=== PATIENT | female | born 1975 | race Caucasian/White ===

== ENCOUNTER → 2017-05-15 | Outpatient (CLI) | payer OTHER ==
[~2017-05-15] MED LIST: ADAL40PEN; ALBU90OI61; ALLO100 PO; AMIT10 PO; AMIT25 PO; AMIT50 PO; ATEN50; Aspir 8181 MG PO; BENZ100A PO; BUSP10 PO; Bactrim Ds Tab1 EACH PO; Budeprion Xl300 MG; CEPH500 PO; CHLO100 PO; CHOL10002 PO; CHOLESTEROL MED; CIMZIA400 MG/2 M SQ; CIPR250 PO; CIPR500 PO; CLIN300 PO; CLON1; CLON1 PO; CLOP75 PO; CYCL10 PO; Cleocin HCl150 MG PO; Cleocin HCl300 MG PO; DIAZ10 PO; DIAZ5 PO; DIAZ5I PO; DICL75ER PO; DIPATR PO; DIPH50 PO; DOCU100 PO; DULO60 PO; ERYT333ERA PO; ESOM20 PO; FAMO20 PO; FENO145 PO; FISH1000 PO; FOLI1 PO; GABA100 PO; GABA300T24 PO; GEMF600 PO; HYDACE10B PO; HYDACE5 PO; HYDACE5325 PO; HYDCHL25; HYDCHL25 PO; HYDMOR4 PO; HYDPAM25 PO; HYDPAM50 PO; HYDR1TAB94 PO; HYDR25SUP PR; HYDROCHLOROTHIAZIDE; HYOS.125 SL; Hydrocodone-Ap1 EA23; Hydrocodone-Ap1 EA23 PO; IBUP400 PO; IBUP600 PO; K-Tab10 MEQ PO; KETO10 PO; LEVFLO500 PO; LIDO2L MM; LISHYD1012 PO; LISHYD2012 PO; LORA1 PO; LORA10ER PO; MECL25 PO; MELA3 PO; MELO7.5 PO; METF500; METF500 PO; METH5; METO100ER PO; METO25 PO; METO50 PO; METO50ER PO; METR500 PO; METTREX2.5; METTREX2.5 PO; MUPI1NAS; Methotrexate2.5 MG PO; NAPR500 PO; NAPR500EC PO; NYST237S MT; Naprosyn500 MG PO; Nitrostat0.4 MG SL; Norco 5-325 Ta1 EACH PO; OMEGA 3 PO; OMEP20ER PO; OMEP40CA12 PO; ONDA4; ONDA4 PO; ONDA4ODT; ONDA4ODT MM; ONDA8; ONDA8 PO; ONDA8ODT MM; OXYACE10; OXYACE5T PO; OXYACE7.5T PO; OXYCODONE/APAP PO; PANT20 PO; PANT40 PO; PARO20 PO; PERCOCET 10/325 PO; POTCHL20ER PO; PRAZ1 PO; PRED10 PO; PRED20 PO; PROC10 PO; PROM25; PROM25 PO; PROM25S PR; PROP10 PO; Percocet; Percocet 5-3251 EACH PO; Percocet PO; Prednisone10 MG PO; Prednisone20 MG PO; Prednisone50 MG PO; Protonix40 MG; Protonix40 MG PO; QUET100 PO; QUET200 PO; RANI150 PO; RIFA300 PO; RXHYDACE PO; RXONDA4ODT MM; RXOXYACE PO; RXPHEN200 PO; RXSULTRIDS PO; RXTRAM50 PO; Robaxin500 MG PO; SERT100; SERT100 PO; SERT50 PO; SIMV40 PO; SUCR1 PO; SULF500 PO; SULTRIDS PO; SULTRISS PO; Seroquel Xr150 MG PO; TAMS.4ER PO; TOPI50; TRAM50; TRAM50 PO; TRAZ100; TRAZ100 PO; TRAZ50; Ultram50 MG PO; VENL37.5; VENLAFAXINE H37.5 MG PO; Voltaren100 GM; XELJANZ XR11 MG PO; XELJANZ5 MG PO; ZESTORETIC 20-251 EA PO; ZOLP10; Zithromax250 MG PO; Zofran Odt4 MG PO; Zofran Odt4 MG SL; Zofran Odt8 MG SL; Zoloft50 MG PO; Zovirax800 MG PO; [UNRECOGNIZED DRUG - OTHER] IM
[2017-05-15 15:24] LABS: BASOPHILS ABSOLUTE AUTO 0.04 K/mm3 (0.00-0.23); BASOPHILS PERCENT AUTO 1 % (0-2); EOSINOPHILS ABSOLUTE AUTO 0.11 K/mm3 (0.00-0.68); EOSINOPHILS PERCENT AUTO 1 % (0-6); Hematocrit 35.3 % (33.0-51.0); IMMATURE GRAN ABSOLUTE AUTO 0.04 K/mm3 (0.00-0.10); IMMATURE GRAN PERCENT AUTO 1 % (0-1); LYMPHOCYTES PERCENT AUTO 34 % (21-46); MONOCYTES ABSOLUTE AUTO 0.46 K/mm3 (0.16-1.47); MONOCYTES PERCENT AUTO 5 % (4-13); Mean Corpuscular HGB 28.2 pg (26.0-34.0); Mean Corpuscular Volume 83 fL (80-100); Mean Platelet Volume 9.4 fL (9.1-12.4); NEUTROPHILS PERCENT AUTO 59 % (41-73); Platelet Count 265 K/mm3 (150-400); RDW Coefficient Variation 14.6 % (11.7-14.2); RDW Standard Deviation 43.1 fL (35.1-46.3); Red Blood Cell Count 4.26 M/mm3 (3.80-5.20); White Blood Cell Count 8.85 K/mm3 (4.00-11.30)
[2017-05-15 15:38] LABS: Anion Gap 12 mmol/L (6-16); Blood Urea Nitrogen 10 mg/dL (8-24); Bun/Creatinine Ratio 12.7 (12.0-20.0); CO2, Blood 21 mmol/L (21-32); Chloride, Blood 105 mmol/L (98-108); Creatinine, Blood 0.79 mg/dL (0.40-1.00); Glomerular Filtration Rate >60 (60-); Glucose, Blood 104 mg/dL (70-99); Sodium, Blood 138 mmol/L (136-145)
== END ==
LOC: LAB EV 15:19 → LAB SHORT 15:19
PROVIDERS: Physician Assistant Surgical
DX: R10.32 Left lower quadrant pain (principal)
CPT/HCPCS: 80048; 85025

== ENCOUNTER 2017-08-04 12:07 | Emergency (ER) | payer OTHER ==
[~2017-08-04] VITALS: Ht 160 cm; Wt 131.1 kg
[~2017-08-04 12:07] MED LIST changes: -ALBU90OI61; -ATEN50; -BENZ100A PO; -Budeprion Xl300 MG; -ONDA8; -Prednisone20 MG PO; -Prednisone50 MG PO; -Voltaren100 GM; -ZOLP10; -Zithromax250 MG PO
== END 2017-08-04 13:15 | disposition home or self-care (01) ==
LOC: ER 12:07
DX: M25.521 Pain in right elbow (principal); M06.9 Rheumatoid arthritis, unspecified; Z88.0 Allergy status to penicillin; Z88.8 Allergy status to other drugs, medicaments and biological substances; Z88.1 Allergy status to other antibiotic agents; Z88.5 Allergy status to narcotic agent; Z79.899 Other long term (current) drug therapy; Z79.52 Long term (current) use of systemic steroids; I10 Essential (primary) hypertension; E11.9 Type 2 diabetes mellitus without complications; F41.9 Anxiety disorder, unspecified; F43.10 Post-traumatic stress disorder, unspecified; Z87.891 Personal history of nicotine dependence
CPT/HCPCS: 96372; 99283; J1885

== ENCOUNTER 2017-09-08 09:48 | Day surgery (SDC) | payer OTHER ==
[~2017-09-08] VITALS: Ht 160 cm; Wt 132.0 kg
[~2017-09-08 09:48] MED LIST changes: +ALBU90OI61; +ATEN50; +Budeprion Xl300 MG; +Voltaren100 GM; +ZOLP10
== END 2017-09-08 11:54 | disposition home or self-care (01) ==
LOC: ORSCSDS 09:48
PROVIDERS: Internal Medicine Gastroenterology
PROC: 0DJ08ZZ Inspection of Upper Intestinal Tract, Via Natural or Artificial Opening Endoscopic (ICD-10-PCS; principal; 2017-09-08 11:00)
DX: K21.0 Gastro-esophageal reflux disease with esophagitis (principal); M06.9 Rheumatoid arthritis, unspecified; I10 Essential (primary) hypertension; G47.33 Obstructive sleep apnea (adult) (pediatric); E11.9 Type 2 diabetes mellitus without complications; Z79.899 Other long term (current) drug therapy
CPT/HCPCS: 82947; J2250

== ENCOUNTER 2018-09-27 14:23 | Emergency (ER) | payer OTHER ==
[~2018-09-27] VITALS: Ht 162.6 cm; Wt 127.0 kg
[~2018-09-27 14:23] MED LIST changes: +ALBU90OI6 INH; -ATEN50; +ATEN50 PO; +BENZ100A PO; -Budeprion Xl300 MG; +Budeprion Xl300 MG PO; +PRAZ2 PO; +Prednisone20 MG PO; +Prednisone50 MG PO; -Protonix40 MG; +VOLTAREN100 GM TOP; +Zithromax250 MG PO
[2018-09-27 15:42] LABS: BASOPHILS ABSOLUTE AUTO 0.02 K/mm3 (0.00-0.23); BASOPHILS PERCENT AUTO 0 % (0-2); EOSINOPHILS ABSOLUTE AUTO 0.19 K/mm3 (0.00-0.68); EOSINOPHILS PERCENT AUTO 3 % (0-6); IMMATURE GRAN ABSOLUTE AUTO 0.03 K/mm3 (0.00-0.10); IMMATURE GRAN PERCENT AUTO 1 % (0-1); LYMPHOCYTES ABSOLUTE AUTO 2.03 K/mm3 (0.84-5.20); LYMPHOCYTES PERCENT AUTO 36 % (21-46); MONOCYTES ABSOLUTE AUTO 0.53 K/mm3 (0.16-1.47); MONOCYTES PERCENT AUTO 9 % (4-13); Mean Corpuscular HGB 26.9 pg (26.0-34.0); Mean Corpuscular HGB Conc 33.3 g/dL (31.5-36.5); Mean Corpuscular Volume 81 fL (80-100); Mean Platelet Volume 9.6 fL (9.1-12.4); NEUTROPHILS ABSOLUTE AUTO 2.88 K/mm3 (1.96-9.15); NEUTROPHILS PERCENT AUTO 51 % (41-73); Platelet Count 181 K/mm3 (150-400); RDW Coefficient Variation 13.2 % (11.7-14.2); RDW Standard Deviation 37.8 fL (35.1-46.3); Red Blood Cell Count 4.84 M/mm3 (3.80-5.20); White Blood Cell Count 5.68 K/mm3 (4.00-11.30)
[2018-09-27 16:01] LABS: International Normalized Ratio 1.04
[2018-09-27 16:12] LABS: Alanine Aminotransfer (ALT/SGP 69 U/L (12-78); Albumin, Blood 3.7 g/dL (3.4-5.0); Albumin/Globulin Ratio 0.8 (0.8-1.8); Alk Phos 110 U/L (50-136); Anion Gap 8 mmol/L (6-16); Aspartate Aminotrans (AST/SGOT 56 U/L (12-37); Bilirubin, Total 0.5 mg/dL (0.1-1.0); Blood Urea Nitrogen 10 mg/dL (8-24); Bun/Creatinine Ratio 15.7 (12.0-20.0); CO2, Blood 28 mmol/L (21-32); Calcium, Blood 8.8 mg/dL (8.5-10.1); Chloride, Blood 104 mmol/L (98-108); Creatinine, Blood 0.64 mg/dL (0.40-1.00); Globulin, Blood 4.8 g/dL (2.2-4.0); Glomerular Filtration Rate >60 (60-); Glucose, Blood 230 mg/dL (70-99); Potassium, Blood 3.6 mmol/L (3.5-5.5); Sodium, Blood 140 mmol/L (136-145); Total Protein, Blood 8.5 g/dL (6.4-8.2)
[2018-09-27] MEDS ORDERED: Remicade100 MG IV (17:54)
[2018-09-27] MEDS ORDERED: LEVO750 PO (18:02)
== END 2018-09-27 18:09 | disposition home or self-care (01) ==
LOC: ER 14:23
PROVIDERS: Physician Assistant
DX: J41.1 Mucopurulent chronic bronchitis (principal); Z88.0 Allergy status to penicillin; Z88.8 Allergy status to other drugs, medicaments and biological substances; Z88.5 Allergy status to narcotic agent; Z79.899 Other long term (current) drug therapy; Z79.84 Long term (current) use of oral hypoglycemic drugs; I10 Essential (primary) hypertension; E11.9 Type 2 diabetes mellitus without complications; F41.9 Anxiety disorder, unspecified; F43.10 Post-traumatic stress disorder, unspecified; Z87.891 Personal history of nicotine dependence
CPT/HCPCS: 36415; 71046; 80053; 83605; 85025; 85610; 85730; 87040; 93005; 93010; 94640; 94760; 99285-25

== ENCOUNTER 2018-11-09 00:14 | Day surgery (SDC) | payer OTHER ==
[~2018-11-09 00:14] MED LIST changes: +LEVO750 PO; +Remicade100 MG IV
[2018-11-09 14:58] LABS: BASOPHILS ABSOLUTE AUTO 0.02 K/mm3 (0.00-0.23); BASOPHILS PERCENT AUTO 0 % (0-2); EOSINOPHILS ABSOLUTE AUTO 0.15 K/mm3 (0.00-0.68); EOSINOPHILS PERCENT AUTO 2 % (0-6); Hematocrit 37.6 % (33.0-51.0); Hemoglobin 12.7 g/dL (11.5-16.0); IMMATURE GRAN ABSOLUTE AUTO 0.06 K/mm3 (0.00-0.10); IMMATURE GRAN PERCENT AUTO 1 % (0-1); LYMPHOCYTES ABSOLUTE AUTO 1.37 K/mm3 (0.84-5.20); LYMPHOCYTES PERCENT AUTO 17 % (21-46); MONOCYTES ABSOLUTE AUTO 0.42 K/mm3 (0.16-1.47); MONOCYTES PERCENT AUTO 5 % (4-13); Mean Corpuscular HGB 27.7 pg (26.0-34.0); Mean Corpuscular HGB Conc 33.8 g/dL (31.5-36.5); Mean Corpuscular Volume 82 fL (80-100); Mean Platelet Volume 9.5 fL (9.1-12.4); NEUTROPHILS ABSOLUTE AUTO 5.84 K/mm3 (1.96-9.15); NEUTROPHILS PERCENT AUTO 74 % (41-73); Platelet Count 227 K/mm3 (150-400); RDW Coefficient Variation 13.2 % (11.7-14.2); RDW Standard Deviation 39.3 fL (35.1-46.3); Red Blood Cell Count 4.58 M/mm3 (3.80-5.20); White Blood Cell Count 7.86 K/mm3 (4.00-11.30)
--- NOTE | 2018-11-09 16:10 | NUR ---
REACTION: AFTER 27.8 ML OF INFLECTRA INFUSED, PT CALLED THIS RN INTO ROOM AND SAID, "I DON'T FEEL RIGHT, I FEEL LIKE I AM SOB AND TINGLING" INFUSION SHUT OFF AND VITALS DONE (SEE FLOW SHEET) CALLED DR. LY LUDWIG AND OBTAINED ORDER FOR IV BENEDRY AND SOLUMEDROL. ADMINISTERED BOTH AND CONTINUED TO MONITOR PTS VITALS AND S/S. PT STATES SHE FEELS BETTER, HELD HER HERE FOR 30 MIN AFTER BENEDRYL AND SOLUMEDROL GIVEN, TOOK IV OUT AND PT CALLED FOR DAUGHTER TO PICK HER UP. DAUGHTER HERE TO GET PT. PT HAD NO OTHER S/S OF REACTION, INFORMED PT THAT SHE WILL NEED TO GET AN APPT ELLYN WITH DR. LUDWIG REGARDING MEDICATION REACTION.
== END 2018-11-09 16:05 | disposition home or self-care (01) ==
LOC: ATC 00:14
PROVIDERS: Internal Medicine Rheumatology
DX: M06.9 Rheumatoid arthritis, unspecified (principal); E11.9 Type 2 diabetes mellitus without complications; E78.00 Pure hypercholesterolemia, unspecified; Z87.891 Personal history of nicotine dependence
CPT/HCPCS: 84450; 85025; 85651; 96375; 96413; J1200; J2930; J7050; Q5103

== ENCOUNTER 2019-03-17 02:16 | Day surgery (SDC) | payer OTHER ==
[2019-03-17] MEDS ORDERED: SIMPONI AR50 MG/4 ML IV (14:09)
[2019-03-17] MEDS ORDERED: LISI20 PO (14:10)
[2019-03-17] MEDS ORDERED: GLIP10ER PO (14:11)
[2019-03-17] MEDS ORDERED: FOLI1 PO (14:12)
[2019-03-17] MEDS ORDERED: ALBU90OI INH (14:14)
[2019-03-17] MEDS ORDERED: ONDA4ODT SL (16:18)
== END 2019-03-17 15:26 | disposition home or self-care (01) ==
LOC: ATC 02:16
DX: M06.9 Rheumatoid arthritis, unspecified (principal); E11.9 Type 2 diabetes mellitus without complications; I10 Essential (primary) hypertension; K21.9 Gastro-esophageal reflux disease without esophagitis; E78.00 Pure hypercholesterolemia, unspecified; F32.9 Major depressive disorder, single episode, unspecified; E66.9 Obesity, unspecified; Z88.5 Allergy status to narcotic agent; Z88.8 Allergy status to other drugs, medicaments and biological substances; Z88.6 Allergy status to analgesic agent; Z91.041 Radiographic dye allergy status; Z88.0 Allergy status to penicillin; Z87.891 Personal history of nicotine dependence; Z68.43 Body mass index [BMI] 50.0-59.9, adult; Z79.84 Long term (current) use of oral hypoglycemic drugs; Z79.899 Other long term (current) drug therapy
CPT/HCPCS: 96365; J1602; Q0163

== ENCOUNTER 2019-05-03 00:10 | Day surgery (SDC) | payer OTHER ==
[~2019-05-03 00:10] MED LIST changes: +ALBU90OI INH; +GLIP10ER PO; +LISI20 PO; +ONDA4ODT SL; +SIMPONI AR50 MG/4 ML IV
== END 2019-05-03 22:56 | disposition home or self-care (01) ==
LOC: ATC 00:10
DX: M06.9 Rheumatoid arthritis, unspecified (principal); E11.9 Type 2 diabetes mellitus without complications; I10 Essential (primary) hypertension; K21.9 Gastro-esophageal reflux disease without esophagitis; F32.9 Major depressive disorder, single episode, unspecified; E78.00 Pure hypercholesterolemia, unspecified; E66.9 Obesity, unspecified; Z88.0 Allergy status to penicillin; Z88.8 Allergy status to other drugs, medicaments and biological substances; Z88.5 Allergy status to narcotic agent; Z88.6 Allergy status to analgesic agent; Z91.041 Radiographic dye allergy status; Z79.899 Other long term (current) drug therapy; Z79.84 Long term (current) use of oral hypoglycemic drugs; Z87.891 Personal history of nicotine dependence; Z68.43 Body mass index [BMI] 50.0-59.9, adult

== ENCOUNTER 2019-05-16 01:08 | Day surgery (SDC) | payer OTHER | END 2019-05-16 11:25 | disposition home or self-care (01) | LOC: ATC 01:08 | DX: M06.9 Rheumatoid arthritis, unspecified (principal); E11.9 Type 2 diabetes mellitus without complications; I10 Essential (primary) hypertension; E66.9 Obesity, unspecified; F32.9 Major depressive disorder, single episode, unspecified; Z87.891 Personal history of nicotine dependence; Z88.0 Allergy status to penicillin; Z88.8 Allergy status to other drugs, medicaments and biological substances; Z88.5 Allergy status to narcotic agent; Z91.041 Radiographic dye allergy status; Z79.899 Other long term (current) drug therapy; Z79.84 Long term (current) use of oral hypoglycemic drugs; Z68.43 Body mass index [BMI] 50.0-59.9, adult | CPT/HCPCS: 96365; J1602; Q0163 ==

== ENCOUNTER 2019-07-12 00:12 | Day surgery (SDC) | payer OTHER | END 2019-07-13 22:46 | disposition home or self-care (01) | LOC: ATC 00:12 | DX: M06.9 Rheumatoid arthritis, unspecified (principal); Z88.0 Allergy status to penicillin; Z88.8 Allergy status to other drugs, medicaments and biological substances; Z88.5 Allergy status to narcotic agent; Z91.041 Radiographic dye allergy status; Z79.899 Other long term (current) drug therapy; E11.9 Type 2 diabetes mellitus without complications; I10 Essential (primary) hypertension; Z87.891 Personal history of nicotine dependence; Z79.4 Long term (current) use of insulin; K21.9 Gastro-esophageal reflux disease without esophagitis; F32.9 Major depressive disorder, single episode, unspecified ==

== ENCOUNTER → 2020-01-26 | Outpatient (CLI) | payer OTHER ==
[2020-01-26 15:41] LABS: Source, Urine Clean Catch
[2020-01-26 19:24] LABS: Appearance, Urine Turbid (Clear); Bilirubin, Urine Neg (Neg); Blood, Urine Neg (Neg); Color, Urine Yellow (P-Yellow); Glucose Qualitative, Urine Neg (Neg); Ketones, Urine Neg (Neg); Leukocyte Esterase, Urine Neg (Neg); Nitrite, Urine Neg (Neg); Protein, Urine Neg (Neg); Urobilinogen, Urine NORM (Normal)
[2020-01-26 19:46] LABS: Amorphous Heavy (0-Heavy); Bacteria Few /hpf; Red Blood Cells, Urine Not Seen /hpf (0-2); Squamous Epithelial Cells Rare /hpf (Few); White Blood Cells, Urine 0-2 /hpf (0-5)
[2020-01-26 20:10] LABS: Microalb/Creat Ratio UR, Rand 9.771 mg/g (0.000-30.000); Microalbumin, Random Urine 12.8 mg/L (0.000-20.000)
== END | disposition home or self-care (01) ==
LOC: LAB 13:29 → LAB SHORT 13:29
PROVIDERS: Nurse Practitioner Family
DX: N20.0 Calculus of kidney (principal); E11.9 Type 2 diabetes mellitus without complications
CPT/HCPCS: 81001; 82043; 82570; 87086

== ENCOUNTER → 2021-07-09 | Outpatient (CLI) | payer OTHER ==
[2021-07-23 13:09] LABS: CA OXALATE DIHYDRATE 20 % (.); CALCIUM OXALATE MONOHYDRATE 80 % (.); COLOR Brown (.); WEIGHT 6 mg (.)
== END ==
LOC: LAB 10:00 → LAB SHORT 10:00
PROVIDERS: Physician Assistant Medical
DX: N20.0 Calculus of kidney (principal)
CPT/HCPCS: 82365

== ENCOUNTER → 2021-07-25 | Outpatient (CLI) | payer OTHER | LOC: LAB 17:05 → LAB SHORT 17:05 | DX: R10.84 Generalized abdominal pain (principal) | CPT/HCPCS: 82653 ==

== ENCOUNTER → 2022-10-29 | Outpatient (CLI) | payer OTHER ==
[2022-10-30 15:18] LABS: Stool Occult Bld Immuno 1 Negative (NEGATIVE)
== END ==
LOC: LAB SHORT 15:50 → LAB 15:50
PROVIDERS: Nurse Practitioner Family
DX: R53.83 Other fatigue (principal)
CPT/HCPCS: G0328

== ENCOUNTER → 2024-01-19 | Outpatient (CLI) | payer OTHER ==
[2024-01-19 15:41] LABS: Bacterial Vaginosis PCR Negative (NEGATIVE); Candida glabrata-krusei, PCR NOT DETECTED (NOT DETECT)
[2024-01-19 15:53] LABS: Candida Group, PCR DETECTED (NOT DETECT)
== END | disposition home or self-care (01) ==
LOC: LAB SHORT 13:10 → LAB 13:10
PROVIDERS: Nurse Practitioner Family
DX: R35.0 Frequency of micturition (principal)
CPT/HCPCS: 87077; 87086; 87186; 87481; 87661; 87801

== ENCOUNTER 2024-04-18 15:55 | Emergency (ER) | payer OTHER ==
[~2024-04-18] VITALS: Ht 157.5 cm; Wt 125.2 kg
[2024-04-18] MEDS ORDERED: BASAGLAR K100 UNIT/4 SC (16:12)
[2024-04-18] MEDS ORDERED: SUBOXONE 8 MG-1 EACH SL (16:13)
[2024-04-18] MEDS ORDERED: LISI5 PO (16:14)
[2024-04-18] MEDS ORDERED: Lisinopril 5 MG Tab PO ONE (16:15)
[2024-04-18] MEDS ORDERED: ERGO50000 PO (16:15)
[2024-04-18] MEDS ORDERED: JARDIANCE10 MG PO (16:15)
[2024-04-18] MEDS ORDERED: TORSE20 PO (16:15)
[2024-04-18 16:34] LABS: BASOPHILS ABSOLUTE AUTO 0.02 K/mm3 (0.00-0.23); BASOPHILS PERCENT AUTO 0 % (0-2); EOSINOPHILS ABSOLUTE AUTO 0.13 K/mm3 (0.00-0.68); EOSINOPHILS PERCENT AUTO 2 % (0-6); Hematocrit 36.5 % (33.0-51.0); Hemoglobin 12.5 g/dL (11.5-16.0); IMMATURE GRAN ABSOLUTE AUTO 0.03 K/mm3 (0.00-0.10); IMMATURE GRAN PERCENT AUTO 0 % (0-1); LYMPHOCYTES ABSOLUTE AUTO 1.46 K/mm3 (0.84-5.20); LYMPHOCYTES PERCENT AUTO 20 % (21-46); MONOCYTES ABSOLUTE AUTO 0.49 K/mm3 (0.16-1.47); MONOCYTES PERCENT AUTO 7 % (4-13); Mean Corpuscular HGB 27.4 pg (26.0-34.0); Mean Corpuscular HGB Conc 34.2 g/dL (31.5-36.5); Mean Corpuscular Volume 80 fL (80-100); Mean Platelet Volume 9.5 fL (9.1-12.4); NEUTROPHILS PERCENT AUTO 71 % (41-73); Platelet Count 154 K/mm3 (150-400); RDW Coefficient Variation 13.2 % (11.7-14.2); RDW Standard Deviation 37.9 fL (35.1-46.3); Red Blood Cell Count 4.56 M/mm3 (3.80-5.20); White Blood Cell Count 7.23 K/mm3 (4.00-11.30)
[2024-04-18 16:54] LABS: Albumin, Blood 3.5 g/dL (3.4-5.0); Albumin/Globulin Ratio 0.8 (0.8-1.8); Bilirubin, Total 0.3 mg/dL (0.1-1.0); Bun/Creatinine Ratio 17.4 (12.0-20.0); Calcium, Blood 8.8 mg/dL (8.5-10.1); Creatinine, Blood 0.52 mg/dL (0.40-1.00); Globulin, Blood 4.5 g/dL (2.2-4.0); Potassium, Blood 3.5 mmol/L (3.5-5.5)
[2024-04-18] MEDS ORDERED: Ketorolac Tromethamine 15mg Vial IV ONE (17:15)
[2024-04-18 20:19] VITALS: BP 139/83
== END 2024-04-18 20:19 | disposition home or self-care (01) ==
LOC: ER 15:55 → ICUE 18:09 → ER 20:19
PROVIDERS: Physician Assistant
DX: M94.0 Chondrocostal junction syndrome [Tietze] (principal); E11.65 Type 2 diabetes mellitus with hyperglycemia; I10 Essential (primary) hypertension; M10.9 Gout, unspecified; M06.9 Rheumatoid arthritis, unspecified; G47.30 Sleep apnea, unspecified; Z87.442 Personal history of urinary calculi; Z87.891 Personal history of nicotine dependence; Z59.89 Other problems related to housing and economic circumstances; Z88.3 Allergy status to other anti-infective agents; Z88.0 Allergy status to penicillin; Z88.8 Allergy status to other drugs, medicaments and biological substances; Z91.041 Radiographic dye allergy status; Z88.5 Allergy status to narcotic agent; Z79.4 Long term (current) use of insulin; Z79.84 Long term (current) use of oral hypoglycemic drugs; Z79.899 Other long term (current) drug therapy
CPT/HCPCS: 71046; 80053; 84484; 85025; 85379; 93005; 93010; 96374; 99285-25; A9270; J1885

== ENCOUNTER 2024-05-11 05:54 | Day surgery (SDC) | payer OTHER ==
[~2024-05-11] VITALS: Ht 157.5 cm; Wt 125.0 kg
[2024-05-11] VITALS (19 sets, daily range): BP systolic 117–170; BP diastolic 65–108
[~2024-05-11 05:54] MED LIST changes: +ARIPIPRAZOLE2 M1 PO; +BASAGLAR K100 UNIT/4 SC; +BUPRENORPHINE HC8 MG SL; +C COMPLEX1000 M1 PO; +DECARA1250 MC1 PO; +JARDIANCE10 MG PO; +LISI5 PO; +SUBOXONE 8 MG-1 EACH SL; +TORSE20 PO; +[UNRECOGNIZED DRUG - OTHER]
[2024-05-11] MEDS ORDERED: Lactated Ringer's 1,000 ML IV SCH (06:25)
[2024-05-11] MEDS ORDERED: CeFAZolin Sodium 3,000 MG in NS 100 ML IV SCH (06:40)
[2024-05-11] MEDS ORDERED: propofoL 20 ML IV ONE (06:47)
[2024-05-11] MEDS ORDERED: Dexamethasone Sod Phos 10 MG/ML 1ML VIAL ONE (06:48)
[2024-05-11] MEDS ORDERED: Ondansetron HCl 2 MG / ML 2ML Vial ONE ×2 (06:48→10:47)
[2024-05-11] MEDS ORDERED: Phenylephrine HCl 100 MCG/ML-NS 10MLSYR (1MG/10ML) ONE (06:48)
[2024-05-11] MEDS ORDERED: FentaNYL Citrate 50 MCG/ML 2 ML Injection ONE (06:48)
[2024-05-11] MEDS ORDERED: Midazolam HCl 1MG / ML 2ML Vial ONE (06:48)
[2024-05-11] MEDS ORDERED: Bupivacaine 0.5% HCl 5 MG/ML 30MLVIAL ONE (06:48)
[2024-05-11] MEDS ORDERED: Rocuronium Bromide 10 MG/ML 5ML Injection IV ONE ×2 (06:48→08:32)
[2024-05-11] MEDS ORDERED: Tranexamic Acid 100 ML IV SCH ×2 (06:52→11:00)
[2024-05-11] MEDS ORDERED: Insulin Regular 100 UNIT/ML 10ML Vial SC ONE (07:20)
[2024-05-11] MEDS ORDERED: propofoL 40 ML IV ONE (08:03)
[2024-05-11] MEDS ORDERED: Sugammadex Sodium 200 MG/2ML SDV (100 MG/ML) ONE (09:21)
[2024-05-11] MEDS ORDERED: Albuterol 2.5 MG/3 ML VIAL INH PRN (09:45)
[2024-05-11] MEDS ORDERED: HYDROmorphone HCl/Pf 1MG SYR IV PRN ×2 (09:45→09:50)
[2024-05-11] MEDS ORDERED: Ondansetron HCl 2 MG / ML 2ML Vial IV PRN ×2 (09:45→11:05)
[2024-05-11] MEDS ORDERED: HydrALAZINE HCl 20 MG / ML 1ML Vial IV PRN (09:50)
[2024-05-11] MEDS ORDERED: FentaNYL Citrate 50 MCG/ML 2 ML Injection IV PRN ×2 (09:50)
[2024-05-11] MEDS ORDERED: HYDROcodone 5-APAP 325 TAB PO PRN ×2 (11:05→20:15)
--- NOTE | 2024-05-11 12:07 | NUR ---
PT ARRIVED TO RM 217 FROM PACU AT APPROXIMATELY 1105. PT REPORTS L SHOULDER PAIN OF 1/10. SHE IS ABLE TO MOVE THE FINGERS ON HER L HAND. CAP REFIL WNL. L RADIAL PULSE IS PRESENT AND PALPABLE. L ARM IN IMMOBILIZER. VSS. PT ON 3L O2 VIA NC, REDUCED TO 2L O2. FAMILY AT BEDSIDE. PT EDUCATED TO USE HER CALL LIGHT.
[2024-05-11] MEDS ORDERED: Insulin Regular 100 Unit/ML 1ML Dose SC SCH (12:10)
[2024-05-11] MEDS ORDERED: Insulin Regular 100 UNIT/ML 10ML Vial SC SCH ×2 (13:00→16:30)
[2024-05-11] MEDS ORDERED: Insulin Human Lispro 100 Units/ML 3ML Syringe SC SCH (16:35)
--- NOTE | 2024-05-11 17:51 | NUR ---
SHIFT SUMMARY PT IS POD#0 FROM L TSA. PAIN IS MANAGED WITH NORCO. PT HAS BEEN ABLE TO AMBULATE AND VOID. TOLERATING PO. PT'S BLOOD GLUCOSE HAS BEEN ELEVATED POST-OP. DR. ANTONIO IS AWARE OF ELEVATED BLOOD GLUCOSE, THOMAS PARRA CONSULTED REGARDING ELEVATED BLOOD GLUCOSE. PT USES CALL LIGHT APPROPRIATELY.
[2024-05-11] MEDS ORDERED: Ketorolac Tromethamine 15mg Vial IV ONE (18:40)
--- NOTE | 2024-05-11 18:40 | NUR ---
FLANK PAIN PT HAS REPORTED L SIDED FLANK PAIN T/O THE DAY, PT STATES THE PAIN STARTED WHEN THE NERVE BLOCK WAS GIVEN PRIOR TO SURGERY. PAIN WAS MANAGED WITH NORCO UNTIL THIS EVENING WHEN PAIN WORSENED. PT NOW RATES HER PAIN AT 9/10 AND PT REPORTS IT HURTS TO TAKE A DEEP BREATH. THOMAS PARRA NOTIFIED. TORADOL ORDERED AND GIVEN PER ORDER.
[2024-05-11] MEDS ORDERED: Methotrexate Sod 2.5 MG Tab PO SCH (19:50)
[2024-05-11] MEDS ORDERED: NS 1,000 ML IV ONE (20:00)
--- NOTE | 2024-05-11 20:28 | NUR ---
PT TO XRAY PT TO XRAY AT THIS TIME VIA WC WITH HOSPITALITY HOST.
[2024-05-11 20:42] LABS: Source, Urine Clean Catch
--- NOTE | 2024-05-11 20:43 | NUR ---
RETURN TO UNIT PT RETURNED TO ROOM FROM XRAY. UNABLE TO OBTAINED ORDERED SCAN DUE POSITIONING, PER NETWORK ANALYST. WILL NOTIFY PROVIDER AT THIS TIME.
[2024-05-11] MEDS ORDERED: Pantoprazole Sodium 40 MG Tab PO SCH (21:00)
[2024-05-11] MEDS ORDERED: Insulin Glargine-Yfgn 100 Unit/mL 3 ML SYR SC SCH (21:00)
[2024-05-11] MEDS ORDERED: Insulin NPH 100 Unit / ML 10ML Vial SC ONE (21:00)
[2024-05-11 21:10] LABS: Appearance, Urine Clear (Clear); Bilirubin, Urine Neg (Neg); Blood, Urine Neg (Neg); Color, Urine Yellow (P-Yellow); Glucose Qualitative, Urine 4+ (Neg); Ketones, Urine 1+ (Neg); Leukocyte Esterase, Urine Neg (Neg); Nitrite, Urine Neg (Neg); Protein, Urine Neg (Neg); Specific Gravity, Urine 1.015 (1.003-1.022); Urobilinogen, Urine NORM (Normal)
[2024-05-11] MEDS ORDERED: Naloxone HCl 0.4MG / ML 1ML Vial IV PRN (21:20)
[2024-05-11] MEDS ORDERED: HYDROmorphone HCl 2 MG Tab PO PRN (21:20)
[2024-05-11] MEDS ORDERED: Acetaminophen 325 MG TABLET PO PRN (21:25)
[2024-05-11 22:07] LABS: Albumin, Blood 3.5 g/dL (3.4-5.0); Albumin/Globulin Ratio 0.8 (0.8-1.8); Bilirubin, Total 0.6 mg/dL (0.1-1.0); Bun/Creatinine Ratio 24.3 (12.0-20.0); Calcium, Blood 8.9 mg/dL (8.5-10.1); Creatinine, Blood 0.7 mg/dL (0.40-1.00); Globulin, Blood 4.3 g/dL (2.2-4.0); Potassium, Blood 3.8 mmol/L (3.5-5.5); Total Protein, Blood 7.8 g/dL (6.4-8.2)
[2024-05-11 22:23] LABS: BASOPHILS ABSOLUTE AUTO 0.01 K/mm3 (0.00-0.23); BASOPHILS PERCENT AUTO 0 % (0-2); EOSINOPHILS PERCENT AUTO 0 % (0-6); Hematocrit 34.7 % (33.0-51.0); Hemoglobin 11.9 g/dL (11.5-16.0); IMMATURE GRAN ABSOLUTE AUTO 0.05 K/mm3 (0.00-0.10); IMMATURE GRAN PERCENT AUTO 1 % (0-1); LYMPHOCYTES ABSOLUTE AUTO 0.91 K/mm3 (0.84-5.20); LYMPHOCYTES PERCENT AUTO 8 % (21-46); MONOCYTES ABSOLUTE AUTO 0.69 K/mm3 (0.16-1.47); MONOCYTES PERCENT AUTO 6 % (4-13); Mean Corpuscular HGB 27.4 pg (26.0-34.0); Mean Corpuscular HGB Conc 34.3 g/dL (31.5-36.5); Mean Corpuscular Volume 80 fL (80-100); Mean Platelet Volume 9.2 fL (9.1-12.4); NEUTROPHILS ABSOLUTE AUTO 9.24 K/mm3 (1.96-9.15); NEUTROPHILS PERCENT AUTO 85 % (41-73); Platelet Count 187 K/mm3 (150-400); RDW Coefficient Variation 13.5 % (11.7-14.2); RDW Standard Deviation 39.1 fL (35.1-46.3); Red Blood Cell Count 4.35 M/mm3 (3.80-5.20)
[2024-05-12] MEDS ORDERED: Insulin Human Lispro 100 Units/ML 3ML Syringe SC SCH
[2024-05-12 04:53] VITALS: BP 144/82
--- NOTE | 2024-05-12 06:09 | NUR ---
SHIFT SUMMARY POD 1 LEFT SHOULDER ARTHOPLASTY. AQUACEL TO INCISION CDI, NO DRAINAGE NOTED. IMMOBILIZER IN PLACE T/O SHIFT. CRYO TO SHOULDER TE. PAIN MANAGED WITH PO MEDICATIONS, REPOSITIONING, AND ICE THERAPY. TE PO INTAKE, DENIES N/V. IND IN ROOM. IS VOIDING. C/O OF LEFT FLANK PAIN, U/S COMPLETE. IV SL. HAS CALL LIGHT IN REACH. PLAN TO WORK WITH THERAPY AND FOR POSSIBLE D/C HOME. PT CURRENTLY RESTING IN BED WITH CALL LIGHT IN REACH, RESP EVEN AND UNLABORED. WILL GIVE REPORT TO ONCOMING RN.
[2024-05-12 07:03] VITALS: BP 119/71
[2024-05-12] MEDS ORDERED: Folic Acid 1 MG TAB PO SCH (09:00)
[2024-05-12] MEDS ORDERED: Torsemide 20 MG TAB PO SCH (09:00)
[2024-05-12] MEDS ORDERED: buprenorphine HCL 2 MG TAB.SUBL SL SCH (09:00)
[2024-05-12] MEDS ORDERED: Insulin Glargine-Yfgn 100 Unit/mL 3 ML SYR SC SCH ×2 (09:00)
[2024-05-12] MEDS ORDERED: Lisinopril 5 MG Tab PO SCH (09:00)
[2024-05-12] MEDS ORDERED: ARIPiprazole 2 MG Tablet PO SCH (09:00)
[2024-05-12] MEDS ORDERED: Potassium Chloride 20 MEQ TabCR PO SCH (09:00)
[2024-05-12] MEDS ORDERED: Sertraline HCl 100 MG Tab PO SCH (09:00)
--- NOTE | 2024-05-12 11:44 | NUR ---
DISCHARGE: PACKET PRINTED AND PT EDUCATED. IV DC'D WNL, TIP INTACT. PT REPORTS THAT SHE ALREADY HAS HER MEDICATIONS AND EXTRA AQUACEL DRESSINGS. PT LEFT UNIT VIA WHEELCHAIR WITH MAMIE WELLINGTON AND HER DAUGHTER AT 1130
== END 2024-05-12 11:34 | disposition home or self-care (01) ==
LOC: SURS 05:54 → ORSCMMR 05:54 → ORD 07:30 → ORSCMMR 07:30 → ORD 08:00 → SURS 11:14 → ORSCMMR 11:14 → SURS 23:00 → ORSCMMR 05-12 11:34
PROVIDERS: Nurse Practitioner Acute Care; Orthopaedic Surgery; Student in an Organized Health Care Education/Training Program
PROC: 0RRK00Z Replacement of Left Shoulder Joint with Reverse Ball and Socket Synthetic Substitute, Open Approach (ICD-10-PCS; principal; 2024-05-11 07:30)
DX: M19.012 Primary osteoarthritis, left shoulder (principal); I10 Essential (primary) hypertension; J44.9 Chronic obstructive pulmonary disease, unspecified; G47.33 Obstructive sleep apnea (adult) (pediatric); K21.9 Gastro-esophageal reflux disease without esophagitis; E11.9 Type 2 diabetes mellitus without complications; F41.9 Anxiety disorder, unspecified; F43.10 Post-traumatic stress disorder, unspecified; E66.01 Morbid (severe) obesity due to excess calories; Z68.43 Body mass index [BMI] 50.0-59.9, adult; Z79.899 Other long term (current) drug therapy; Z87.891 Personal history of nicotine dependence
CPT/HCPCS: 36415; 73030; 76770; 80053; 81003; 82947; 85025; 94760; A9270; C1713; C1776; J0690; J1100; J1815; J1885; J2250; J2371; J2405; J2704; J3010; J7030; J7120; J8610

== ENCOUNTER 2024-11-16 10:49 | Emergency (ER) | payer OTHER ==
[~2024-11-16] VITALS: Ht 157.5 cm; Wt 122.0 kg
[2024-11-16 10:52] VITALS: BP 206/128
[2024-11-16 11:11] LABS: BASOPHILS ABSOLUTE AUTO 0.04 K/mm3 (0.00-0.23); BASOPHILS PERCENT AUTO 0 % (0-2); EOSINOPHILS ABSOLUTE AUTO 0.16 K/mm3 (0.00-0.68); EOSINOPHILS PERCENT AUTO 2 % (0-6); Hematocrit 37.4 % (33.0-51.0); Hemoglobin 12.6 g/dL (11.5-16.0); IMMATURE GRAN ABSOLUTE AUTO 0.04 K/mm3 (0.00-0.10); IMMATURE GRAN PERCENT AUTO 0 % (0-1); LYMPHOCYTES ABSOLUTE AUTO 2.22 K/mm3 (0.84-5.20); LYMPHOCYTES PERCENT AUTO 24 % (21-46); MONOCYTES ABSOLUTE AUTO 0.45 K/mm3 (0.16-1.47); MONOCYTES PERCENT AUTO 5 % (4-13); Mean Corpuscular HGB Conc 33.7 g/dL (31.5-36.5); Mean Corpuscular Volume 77 fL (80-100); NEUTROPHILS ABSOLUTE AUTO 6.36 K/mm3 (1.96-9.15); NEUTROPHILS PERCENT AUTO 69 % (41-73); NRBC ABSOLUTE 0.00 K/mm3 (0.00-0.02); NRBC Auto 0.0 /100 WBC (0.0-0.2); Platelet Count 196 K/mm3 (150-400); RDW Coefficient Variation 14.3 % (11.7-14.2); RDW Standard Deviation 39.1 fL (35.1-46.3)
[2024-11-16] MEDS ORDERED: Ondansetron 4 MG SoluTab SL ONE (11:40)
[2024-11-16 11:41] LABS: Alanine Aminotransfer (ALT/SGP 44.0 U/L (12-78); Albumin, Blood 3.7 g/dL (3.4-5.0); Albumin/Globulin Ratio 0.8 (0.8-1.8); Anion Gap 10.0 mmol/L (3-11); Aspartate Aminotrans (AST/SGOT 47.0 U/L (12-37); Bilirubin, Total 0.4 mg/dL (0.1-1.0); Blood Urea Nitrogen 9.0 mg/dL (8-24); CO2, Blood 24.0 mmol/L (21-32); Calcium, Blood 9.2 mg/dL (8.5-10.1); Chloride, Blood 105.0 mmol/L (98-108); Creatinine, Blood 0.58 mg/dL (0.40-1.00); Globulin, Blood 4.9 g/dL (2.2-4.0); Glucose, Blood 188.0 mg/dL (70-99); Potassium, Blood 4.0 mmol/L (3.5-5.5); Sodium, Blood 135.0 mmol/L (136-145); Total Protein, Blood 8.6 g/dL (6.4-8.2)
[2024-11-16] MEDS ORDERED: Prinivil5 MG PO (13:53)
== END 2024-11-16 14:00 | disposition home or self-care (01) ==
LOC: ER 10:49
PROVIDERS: Emergency Medicine
DX: I10 Essential (primary) hypertension (principal); E11.9 Type 2 diabetes mellitus without complications; F43.10 Post-traumatic stress disorder, unspecified; G47.30 Sleep apnea, unspecified; Z88.8 Allergy status to other drugs, medicaments and biological substances; Z88.0 Allergy status to penicillin; Z91.041 Radiographic dye allergy status; Z79.4 Long term (current) use of insulin; Z79.84 Long term (current) use of oral hypoglycemic drugs; Z79.899 Other long term (current) drug therapy; Z87.891 Personal history of nicotine dependence
CPT/HCPCS: 70450; 71046; 80053; 84484; 85025; 93005; 93010; 99285-25; A9270

== ENCOUNTER 2024-11-24 02:28 | Emergency (ER) | payer OTHER ==
[~2024-11-24] VITALS: Ht 157.5 cm; Wt 118.8 kg
[~2024-11-24 02:28] MED LIST changes: +Prinivil5 MG PO
[2024-11-24 02:42] LABS: BASOPHILS ABSOLUTE AUTO 0.04 K/mm3 (0.00-0.23); BASOPHILS PERCENT AUTO 0 % (0-2); EOSINOPHILS ABSOLUTE AUTO 0.24 K/mm3 (0.00-0.68); EOSINOPHILS PERCENT AUTO 3 % (0-6); Hematocrit 37.6 % (33.0-51.0); Hemoglobin 12.8 g/dL (11.5-16.0); IMMATURE GRAN ABSOLUTE AUTO 0.03 K/mm3 (0.00-0.10); IMMATURE GRAN PERCENT AUTO 0 % (0-1); LYMPHOCYTES ABSOLUTE AUTO 2.73 K/mm3 (0.84-5.20); LYMPHOCYTES PERCENT AUTO 29 % (21-46); MONOCYTES ABSOLUTE AUTO 0.61 K/mm3 (0.16-1.47); MONOCYTES PERCENT AUTO 7 % (4-13); Mean Corpuscular HGB Conc 34.0 g/dL (31.5-36.5); Mean Corpuscular Volume 76 fL (80-100); NEUTROPHILS ABSOLUTE AUTO 5.80 K/mm3 (1.96-9.15); NEUTROPHILS PERCENT AUTO 61 % (41-73); NRBC ABSOLUTE 0.00 K/mm3 (0.00-0.02); NRBC Auto 0.0 /100 WBC (0.0-0.2); Platelet Count 200 K/mm3 (150-400); RDW Coefficient Variation 14.3 % (11.7-14.2); RDW Standard Deviation 38.6 fL (35.1-46.3)
[2024-11-24 03:03] LABS: Alanine Aminotransfer (ALT/SGP 39.0 U/L (12-78); Albumin, Blood 3.7 g/dL (3.4-5.0); Albumin/Globulin Ratio 0.8 (0.8-1.8); Anion Gap 11.0 mmol/L (3-11); Aspartate Aminotrans (AST/SGOT 36.0 U/L (12-37); Bilirubin, Total 0.3 mg/dL (0.1-1.0); Blood Urea Nitrogen 14.0 mg/dL (8-24); CO2, Blood 23.0 mmol/L (21-32); Calcium, Blood 8.8 mg/dL (8.5-10.1); Chloride, Blood 105.0 mmol/L (98-108); Creatinine, Blood 0.65 mg/dL (0.40-1.00); Globulin, Blood 4.9 g/dL (2.2-4.0); Glucose, Blood 142.0 mg/dL (70-99); Potassium, Blood 3.8 mmol/L (3.5-5.5); Sodium, Blood 135.0 mmol/L (136-145); Total Protein, Blood 8.6 g/dL (6.4-8.2)
[2024-11-24] MEDS ORDERED: Ondansetron HCl 2 MG / ML 2ML Vial IV ONE (07:10)
[2024-11-24] MEDS ORDERED: Ondansetron 4 MG SoluTab MM ONE (07:15)
[2024-11-24 08:07] VITALS: BP 101/81
== END 2024-11-24 08:09 | disposition home or self-care (01) ==
LOC: ER 02:28
PROVIDERS: Emergency Medicine
DX: R42 Dizziness and giddiness (principal); I10 Essential (primary) hypertension; F43.10 Post-traumatic stress disorder, unspecified; G47.30 Sleep apnea, unspecified; E11.65 Type 2 diabetes mellitus with hyperglycemia; Z68.42 Body mass index [BMI] 45.0-49.9, adult; Z87.891 Personal history of nicotine dependence; Z79.899 Other long term (current) drug therapy; Z79.4 Long term (current) use of insulin; Z88.0 Allergy status to penicillin; Z88.1 Allergy status to other antibiotic agents; Z91.041 Radiographic dye allergy status; Z88.8 Allergy status to other drugs, medicaments and biological substances
CPT/HCPCS: 71046; 80053; 83690; 84484; 85025; 93005; 93010; 99284-25; A9270; J2405

== ENCOUNTER 2024-12-27 08:46 | Emergency (ER) | payer OTHER ==
[~2024-12-27] VITALS: Ht 157.5 cm; Wt 118.8 kg
[2024-12-27 09:44] LABS: Source, Urine Clean Catch
[2024-12-27 09:49] LABS: Bilirubin, Urine Neg (Neg); Color, Urine Amber (P-Yellow); Glucose Qualitative, Urine 3+ (Neg); Ketones, Urine Neg (Neg); Leukocyte Esterase, Urine Neg (Neg); Protein, Urine 3+ (Neg); Specific Gravity, Urine 1.015 (1.003-1.022); Urobilinogen, Urine NORM (Normal)
[2024-12-27 09:56] LABS: Red Blood Cells, Urine TNTC /hpf (0-2); White Blood Cells, Urine Not Seen /hpf (0-5)
[2024-12-27 10:11] LABS: BASOPHILS ABSOLUTE AUTO 0.03 K/mm3 (0.00-0.23); BASOPHILS PERCENT AUTO 0 % (0-2); EOSINOPHILS ABSOLUTE AUTO 0.06 K/mm3 (0.00-0.68); EOSINOPHILS PERCENT AUTO 1 % (0-6); Hematocrit 36.2 % (33.0-51.0); Hemoglobin 12.5 g/dL (11.5-16.0); IMMATURE GRAN ABSOLUTE AUTO 0.08 K/mm3 (0.00-0.10); IMMATURE GRAN PERCENT AUTO 1 % (0-1); LYMPHOCYTES ABSOLUTE AUTO 1.18 K/mm3 (0.84-5.20); LYMPHOCYTES PERCENT AUTO 11 % (21-46); MONOCYTES ABSOLUTE AUTO 0.42 K/mm3 (0.16-1.47); MONOCYTES PERCENT AUTO 4 % (4-13); Mean Corpuscular HGB Conc 34.5 g/dL (31.5-36.5); Mean Corpuscular Volume 74 fL (80-100); NEUTROPHILS ABSOLUTE AUTO 9.27 K/mm3 (1.96-9.15); NEUTROPHILS PERCENT AUTO 84 % (41-73); NRBC ABSOLUTE 0.00 K/mm3 (0.00-0.02); NRBC Auto 0.0 /100 WBC (0.0-0.2); Platelet Count 190 K/mm3 (150-400); RDW Coefficient Variation 14.0 % (11.7-14.2); RDW Standard Deviation 37.4 fL (35.1-46.3)
[2024-12-27 10:36] LABS: Alanine Aminotransfer (ALT/SGP 34.0 U/L (12-78); Albumin, Blood 3.6 g/dL (3.4-5.0); Albumin/Globulin Ratio 0.7 (0.8-1.8); Anion Gap 9.0 mmol/L (3-11); Aspartate Aminotrans (AST/SGOT 34.0 U/L (12-37); Bilirubin, Total 0.3 mg/dL (0.1-1.0); Blood Urea Nitrogen 12.0 mg/dL (8-24); CO2, Blood 26.0 mmol/L (21-32); Calcium, Blood 9.6 mg/dL (8.5-10.1); Chloride, Blood 103.0 mmol/L (98-108); Creatinine, Blood 0.76 mg/dL (0.40-1.00); Globulin, Blood 5.0 g/dL (2.2-4.0); Glucose, Blood 213.0 mg/dL (70-99); Potassium, Blood 4.1 mmol/L (3.5-5.5); Sodium, Blood 134.0 mmol/L (136-145); Total Protein, Blood 8.6 g/dL (6.4-8.2)
[2024-12-27] MEDS ORDERED: HYDROmorphone HCl/Pf 1MG SYR IV ONE (11:10)
[2024-12-27] MEDS ORDERED: NS 1,000 ML IV SCH (11:10)
[2024-12-27] MEDS ORDERED: Percocet 5-3251 EACH PO (12:07)
[2024-12-27] MEDS ORDERED: ONDA4ODT MM (12:07)
[2024-12-27 12:52] VITALS: BP 179/86
[2024-12-28] MEDS ORDERED: HYDR1TAB94 PO (19:36)
[2024-12-28] MEDS ORDERED: TAMS.4ER PO (19:36)
== END 2024-12-27 12:52 | disposition home or self-care (01) ==
LOC: ER 08:46
PROVIDERS: Physician Assistant
DX: N13.2 Hydronephrosis with renal and ureteral calculous obstruction (principal); I10 Essential (primary) hypertension; E11.9 Type 2 diabetes mellitus without complications; K21.9 Gastro-esophageal reflux disease without esophagitis; G47.30 Sleep apnea, unspecified; F43.10 Post-traumatic stress disorder, unspecified
CPT/HCPCS: 74176; 80053; 81001; 83690; 85025; 96361; 96374; 99285-25; J1171; J7030

== ENCOUNTER → 2025-01-10 | Outpatient (CLI) | payer OTHER ==
[2025-01-16 13:16] LABS: CALCULI MASS 109 mg
== END ==
LOC: LAB SHORT 17:06 → LAB 17:06
PROVIDERS: Urology
DX: N20.0 Calculus of kidney (principal)
CPT/HCPCS: 82365

== ENCOUNTER → 2025-01-31 | Outpatient (CLI) | payer OTHER ==
[2025-01-31 18:57] LABS: Calcium, Urine 7.3 mg/dL (< 17.5); Calcium, Urine Calculation 109.5 mg/24hrs (42.0-353.0); Phosphorus, Urine 65.5 mg/dL (20.0-60.0)
[2025-01-31 19:00] LABS: Sodium, Urine 118.0 mmol/L (20-110); Uric Acid, Urine 52.4 mg/dL (7.5-49.5)
== END ==
LOC: LAB 14:14 → LAB SHORT 14:14
PROVIDERS: Urology
DX: N20.0 Calculus of kidney (principal)
CPT/HCPCS: 81050; 82340; 82507; 83735; 83945; 84105; 84300; 84560